=== PATIENT | female | born 1995 | race African-American/Black ===

== ENCOUNTER 2018-06-09 19:02 | Emergency (ER) | payer OTHER ==
[~2018-06-09] VITALS: Ht 175.3 cm; Wt 80.7 kg
[2018-06-09 19:45] VITALS: BP 113/66
[2018-06-09] MEDS ORDERED: FAMOTIDINE 20 MG TABLET. ONE (20:05)
--- NOTE | 2018-06-09 20:16 | PHYS DOC ---
Past Medical History Past Medical History: Asthma Past Surgical History: No Surgical History Alcohol Use: None Drug Use: None Adult General Chief Complaint Chief Complaint: CHEST WALL PAIN HPI HPI Patient is a 23 year old female who presents with the health she's been living in their been a couple of people that are positive for influenza. Patient states she's been coughing now having chest pressure and pain that is centered. Patient states it started while she was at her mother's house today. Patient denies a productive cough or fever. Patient denies abdominal pain, nausea, vomiting, diarrhea, nasal congestion, dizziness, vaginal discharge or bleeding. Review of Systems Review of Systems Constitutional: Denies fever or chills [] Eyes: Denies change in visual acuity, redness, or eye pain [] HENT: Denies nasal congestion or sore throat [] Respiratory: cough or shortness of breath [] Cardiovascular: Mid chest pain GI: Denies abdominal pain, nausea, vomiting, bloody stools or diarrhea [] : Denies dysuria or hematuria [] Musculoskeletal: Denies back pain or joint pain [] Integument: Denies rash or skin lesions [] Neurologic: Denies headache, focal weakness or sensory changes [] All other systems were reviewed and found to be within normal limits, except as documented in this note. Current Medications Current Medications Current Medications Medications (Trade) Dose Ordered Sig/Kendrick Start Time Stop Time Status Last Admin Dose Admin Albuterol/ Ipratropium (Duoneb) 3 ml 1X ONCE 06/09/18 20:45 06/09/18 20:46 DC 06/09/18 20:38 3 ML Famotidine (Pepcid) 20 mg STK-MED ONCE 06/09/18 20:05 06/09/18 20:06 DC Allergies Allergies Allergies Coded Allergies Type Severity Reaction Last Updated Verified No Known Drug Allergies 06/09/18 No Physical Exam Physical Exam Constitutional: Well developed, well nourished, no acute distress, non-toxic appearance. [] HENT: Normocephalic, atraumatic, bilateral external ears normal, oropharynx moist, no oral exudates, nose normal. [] Eyes: PERRLA, EOMI, conjunctiva normal, no discharge. [] Neck: Normal range of motion, no tenderness, supple, no stridor. [] Cardiovascular:Heart rate regular rhythm, no murmur [] Lungs & Thorax: Bilateral breath sounds clear to auscultation [] Abdomen: Bowel sounds normal, soft, no tenderness, no masses, no pulsatile masses. [] Skin: Warm, dry, no erythema, no rash. [] Back: No tenderness, no CVA tenderness. [] Extremities: No tenderness, no cyanosis, no clubbing, ROM intact, no edema. [] Neurologic: Alert and oriented X 3, normal motor function, normal sensory function, no focal deficits noted. [] Psychologic: Affect normal, judgement normal, mood normal. Normal Physical Exam. [] Current Patient Data Vital Signs Vital Signs Date Time Temp Pulse Resp B/P (MAP) Pulse Ox O2 Delivery O2 Flow Rate FiO2 06/09/18 20:38 100 Room Air 06/09/18 19:45 98.8 95 18 113/66 (82) 98.8 Lab Values Laboratory Tests Test 06/09/18 20:06 Influenza Type A Antigen Negative (NEGATIVE) Influenza Type B Antigen Negative (NEGATIVE) EKG EKG Sinus tach and no stemi Interpretation Time: [address] Mar Radiology/Procedures Radiology/Procedures [] Course & Med Decision Making Course & Med Decision Making Patient is a 23 year old female who presents with the health she's been living in their been a couple of people that are positive for influenza. Patient states she's been coughing now having chest pressure and pain that is mid chest with no radiation. She states when she leaned forward the pain did shoot up her chest but currently the pain is just sitting mid chest. No abdominal tenderness. Patient states it started while she was at her mother's house today. Patient denies a productive cough or fever. Patient denies abdominal pain , nausea, vomiting, diarrhea, nasal congestion, dizziness, vaginal discharge or bleeding, ear pain or throat pain. Patient is rating her pain at a 9. Patient is 22 weeks . Patient does have a history of asthma states that she will take a dual neb when I offered. Patient states she has slight shortness of air. Vital signs within normal limits and she is afebrile. Lungs clear to auscultation in all lobes. No peripheral edema. I have ordered a EKG and a DuoNeb. I have not ordered a chest x-ray due to negative physical exam and the risk outweighs the benefit. Patient is given a Pepcid. Patient states she is feeling much better. Patient states she does not have an inhaler and just moved back here. Patient states she does have an OB doctor. Patient agrees to follow up with her OB doctor. I'll write her for said prescription for Pepcid and an inhaler. Melba Disclaimer Melba Disclaimer This electronic medical record was generated, in whole or in part, using a voice recognition dictation system. Departure Departure Impression: Primary Impression: Acid reflux Additional Impressions: Shortness of breath Chest pain Disposition: HOME, SELF-CARE Condition: STABLE Patient Instructions: Diet for Gastroesophageal Reflux Disease, Adult, Heartburn During Additional Instructions: Follow-up with her OB doctor soon. Take medication as prescribed. Drink plenty of fluids. Scripts Albuterol Sulfate (Proair Hfa) 8.5 Gm Hfa.aer.ad 1 PUFF INH PRN Q6HRS PRN for SHORTNESS OF BREATH, #1 INHALER Prov: KYLIE JOLLY APRN 06/09/18 Famotidine (PEPCID) 20 Mg Tablet 20 MG PO BID for 14 Days, #28 TAB Prov: KYLIE JOLLY APRN 06/09/18 Problem Qualifiers Primary Impression: Acid reflux Esophagitis presence: esophagitis presence not specified Qualified Codes: K21.9 - Gastro-esophageal reflux disease without esophagitis Additional Impressions: Chest pain Chest pain type: unspecified Qualified Codes: R07.9 - Chest pain, unspecified KYLIE JOLLY APRN Jun 09, 2018 20:16
[2018-06-09] MEDS ORDERED: FAMOTIDINE 20 MG TABLET. PO ONE (20:30)
[2018-06-09 20:33] LABS: INFLUENZA A PATIENT NEGATIVE (NEGATIVE); INFLUENZA B PATIENT NEGATIVE (NEGATIVE)
[2018-06-09] MEDS ORDERED: IPRATRPIUM/ALBUTEROL 0.5/2.5MG 3 ML NEBU. NEB ONE (20:45)
[2018-06-09] MEDS ORDERED: ALBU2.5V8 INH (21:44)
[2018-06-09] MEDS ORDERED: FAMO-63 PO (21:44)
--- NOTE | 2018-06-10 11:01 | EKG ---
[facility] [address] [place] [address] Test Date: 2018-06-09 Test Time: 19:38:08 Pat Name: YESIKA DIAMOND Department: Room: Gender: F Distribution Sales Manager: : 1995 Requested By: KYLIE JOLLY Order Number: [id number] Reading MD: Dakota Mckeon MD Measurements Intervals [place] Rate: 102 P: 51 ND: 140 QRS: 73 QRSD: 72 T: 20 QT: 332 QTc: 436 Interpretive Statements SINUS TACHYCARDIA NON-SPECIFIC ST/T CHANGES Electronically Signed On 06-10-2018 11:07:20 CDT by Daokta Mckeon MD
== END 2018-06-09 21:50 | disposition home or self-care (01) ==
LOC: ER 19:02
DX: O99.612 Diseases of the digestive system complicating pregnancy, second trimester (principal); K21.9 Gastro-esophageal reflux disease without esophagitis; R06.02 Shortness of breath; R07.89 Other chest pain; O99.512 Diseases of the respiratory system complicating pregnancy, second trimester; J45.909 Unspecified asthma, uncomplicated; Z3A.22 22 weeks gestation of pregnancy
CPT/HCPCS: 87804; 93005; 94640; 99284; J7620